=== PATIENT | female | born 1990 | race Two or more races ===

== ENCOUNTER 2024-03-13 19:38 | Emergency (ER) | payer MEDICAID, SELFPAY ==
[2024-03-13 19:38] VITALS: BMI 47.2
--- NOTE | 2024-03-13 21:27 | PC.NURSE ---
NO ANSWER AT ER LOBBY OR OUTSIDE ER TO BE SEEN BY PROVIDER.
== END 2024-03-13 21:28 | disposition left against medical advice (07) ==
PROVIDERS: Emergency Provider Emergency Medicine
DX: Z53.21 Procedure and treatment not carried out due to patient leaving prior to being seen by health care provider (principal)

== ENCOUNTER 2024-04-21 15:57 | Emergency (ER) | payer MEDICAID, SELFPAY ==
[2024-04-21 16:23] VITALS: BP 127/72; PULSE 100; RESP 18; TEMP 37.4; O2SAT 97; BMI 49.8
--- NOTE | 2024-04-21 16:34 | PD.EDURI ---
Upper Respiratory Inf. RME/HPI General Chief Complaint: Flu Like Symptoms Stated Complaint: fever, sore throat, diarrhea, Time Seen by Provider: 04/21/24 16:01 Arrival date/time: 04/21/24 15:57 33-year-old female with no significant medical problems presents emergency department complains of sore throat, fever, diarrhea and bodyaches reports ongoing for last couple of days Limitations: no limitations Related Data Previous Rx's ?Medication ?Instructions ?Recorded azithromycin 500 mg tablet See Rx Instructions PO .COMPLEX #6 02/21/23 tabs ibuprofen 800 mg tablet 800 mg PO TID PRN pain #30 tabs 02/21/23 amoxicillin 875 mg-potassium 1 tab PO BID 7 days #14 tabs 04/21/24 clavulanate 125 mg tablet ibuprofen 800 mg tablet 800 mg PO TID PRN pain #30 tabs 04/21/24 Allergies Allergy/AdvReac Type Severity Reaction Status Date / Time No Known Allergies Allergy Verified 04/21/24 15:59 Review of Systems Review of Systems Systems Reviewed: All systems reviewed, normal except as documented Constitutional Constitutional: Reports system reviewed and no additional complaints, except as documented, Denies fever(s) and Reports headache(s) Eyes Eyes: Reports system reviewed and no additional complaints, except as documented and Denies blurry vision ENT Ears, Nose, Mouth, and Throat: Reports system reviewed and no additional complaints, except as documented, Reports headache(s), Reports nasal congestion, Reports nasal discharge and Reports sore throat Cardiovascular Cardiovascular: Reports system reviewed and no additional complaints, except as documented, Denies chest pain and Denies dyspnea Respiratory Respiratory: Reports system reviewed and no additional complaints, except as documented, Reports chest congestion, Reports cough and Denies dyspnea Gastrointestinal Gastrointestinal: Reports system reviewed and no additional complaints, except as documented, Denies abdominal pain and Reports loose stools Integumentary/Breasts Skin/Breast: Reports system reviewed and no additional complaints, except as documented and Denies rash Neurologic Neurologic: Reports system reviewed and no additional complaints, except as documented, Reports as per HPI and Reports headache(s) Past Medical History Past Medical History NEUROLOGIC: Negative Neurological Disorders or Seizures CARDIAC: Negative Cardiac Disorders or Congestive Heart Failure RESPIRATORY: Negative Chronic Obstructive Pulmonary Disease (COPD) or Asthma GASTROINTESTINAL: Positive Gastrointestinal Disorders and Obesity; Negative Hepatitis, Cirrhosis, Pancreatitis, Celiac Disease, Gall Bladder Disease, Gastrointestinal Bleed, Esophageal Varices, Hassan's Esophagus, Colitis, Ulcerative Colitis, Diverticulitis, Diverticulosis, Ulcer, Colorectal Cancer, Irritable Bowel, Crohn's Disease, Obstructive Bowel, Hiatal Hernia, Hemorrhoids or Gastroesophageal Reflux Disease GENITOURINARY: Negative Genitourinary Disorders, Renal Disease or Prostate Cancer REPRODUCTIVE: Positive Previous Pregnancies; Negative Breast Cancer, Endometriosis, Genital Herpes, Gonorrhea, Pelvic Inflammatory Disease, Syphilis, Testicular Cancer or Uterine Prolapse MUSCULOSKELETAL: Negative Musculoskeletal Disorders or Bone Cancer ENDOCRINE: Negative Endocrine Disorders, Diabetes Mellitus Type 1 or Diabetes Mellitus Type 2 HEMATOLOGIC: Negative Blood Disorders or Sickle Cell Disease PSYCHO/SOCIAL: Positive Anxiety and Depression OTHER HISTORY: Positive Chicken Pox; Negative Hospitalization, Autoimmune Disease, Down Syndrome, Developmental Delay, Shingles, Falls, Blood Transfusions, Blood Transfusion Reaction, Anesthesia Reactions, Organ Transplant, Chemotherapy, Radiation Therapy, Hyperbaric Therapy, MRSA, VRSA, Vancomycin-Resistant Enterococci, Human Immunodeficiency Virus (HIV), Measles, Mumps, Rubella (Angolan Measles), Pertussis, Clostridium Difficile, Cancer, Breast Cancer, Cervical Cancer, Colorectal Cancer, Lung Cancer, Ovarian Cancer, Prostate Cancer or Testicular Cancer Family History FAMILY HISTORY: Positive Family Psychiatric Problems (MATERNAL UNCLE SCHIZOPHRENIA), Family Cardiac Disorders (HTN MOTHER), Family Cancer (AUNT PASSED W. BREAST CANCER) and Family Surgery (AUNT BREAST SURGERY); Negative Family Respiratory Disorders, Family Gastrointestinal Problems or Family Anesthesia Reaction Surgical History SURGICAL: Negative Cardiac Surgery, Endocrine Surgery, Ear Surgery, Abdominal Surgery, Nephrectomy, Joint Replacement, Neurologic Surgery, Mastectomy, Section or Organ Transplant Social History SMOKING STATUS: Never smoker SECOND HAND EXPOSURE: No ED Exam General Limitations: Present no limitations General appearance: Present alert and in no apparent distress Head Head exam: Present atraumatic, normocephalic and normal inspection Eye Eye exam: Present normal appearance, PERRL and EOMI; Absent conjunctival injection ENT ENT exam: Present normal exam, normal oropharynx and mucous membranes moist Neck Neck exam: Present normal inspection, full ROM and trachea midline Chest Chest inspection: Present normal inspection and symmetric chest wall rise Respiratory Respiratory exam: Present normal lung sounds bilaterally Cardiovascular Cardiovascular exam: Present regular rate, normal rhythm and normal heart sounds Abdominal Exam Abdominal exam: Present soft and normal bowel sounds; Absent distention, tenderness, guarding, rebound or rigidity Extremities Exam Extremities exam: Present normal inspection and full ROM Back Exam Back exam: Present normal inspection and full ROM Neurological Exam Neurological exam: Present alert, oriented X3, CN II-XII intact, normal gait and reflexes normal; Absent motor sensory deficit Psychiatric Psychiatric exam: Present normal affect and normal mood Skin Skin exam: Present warm, dry, intact and normal color; Absent rash Course Quality Measures none Vital Signs Vital signs: Vital Signs Temperature 99.3 F 04/21/24 16:23 Pulse Rate 100 04/21/24 16:23 Respiratory Rate 18 04/21/24 16:23 Blood Pressure 127/72 04/21/24 16:23 Pulse Oximetry (%) 97 04/21/24 16:23 Oxygen Delivery Method Room Air 04/21/24 16:23 O2 saturation 97% on room air within normal limits Upper Respiratory Infection MDM Narrative MDM Narrative:: 33-year-old female with no significant medical problems presents emergency department complains of sore throat, fever, diarrhea and bodyaches reports ongoing for last couple of days On exam patient does not appear ill or toxic and in no acute distress On exam patient does have tonsillar erythema no trismus no hoarseness of voice Patient given course of antibiotics and medication for fever and pain Patient discharged home in no distress to follow-up with primary care doctor in the next 24 to 48 hours and for any worsening symptoms to return to the ER immediately Patient data External records reviewed:: [facility] previous records Clinical information provided by:: patient Social determinants that could affect healthcare access:: none Patient has the following chronic illnesses:: None How is presenting disease/condition affected by chronic disease/condition?: no chronic disease Evaluation data The following diagnostics were reviewed and interpreted by me:: other (specify) (N/A) Lab and/or radiology exams considered but not ordered:: Consider not ordered Interpretation Summary: N/A Medications / Prescriptions Medications or Prescriptions considered but not ordered:: Given Medication administrations:: Given Consultations Consultation(s) initiated? (list below): No Diagnosis Upper Respiratory Differential Diagnosis: upper respiratory infection, viral infection and pharyngitis Most likely diagnosis given after review of the tests above:: Pharyngitis, diarrhea Admission Indicated Admission indicated?: not indicated Admission Request Was there a request for admission?: No Disposition Plan Disposition Plan: Discharge Discharge Attestation Discharge Attestation: The patient and all family members were given an opportunity to ask questions and understood the discharge instructions. Discharge instructions specifically effects, indications for sooner follow up or return to the emergency department, and the expected course of current diagnosis. Patient condition: Stable Discharge Plan Plan Patient Disposition: HOME (Self Care) Disposition Comment: Stable Prescriptions/Referrals Prescriptions/Med Rec: New amoxicillin-pot clavulanate 875-125 mg tablet 1 tab PO BID 7 Days Qty: 14 0RF ibuprofen 800 mg tablet 800 mg PO TID PRN (Reason: pain) Qty: 30 0RF No Action ibuprofen 800 mg tablet 800 mg PO TID PRN (Reason: pain) Qty: 30 0RF azithromycin 500 mg tablet See Rx Instructions .ROUTE .COMPLEX Qty: 6 0RF Rx Instructions: take 500 mg today (day 1), then 250 mg for 4 days (days 2-5) Problem List Clinical Impression: Pharyngitis, Otalgia of left ear Patient/Caregiver Discharge Instructions Education Materials: Self-Care for Sore Throats Additional Instructions: Please follow up with your primary care doctor in the next 24-48hrs for any worsening symptoms return here immediately Print Language: Ethiopian Stand Alone Forms: Jacque Award Info., Work/School Release, Patient Portal Info Letter PA/RVDA MASTER CERTIFIED RV TECHNICIAN Supervising Physician PA/RVDA MASTER CERTIFIED RV TECHNICIAN Supervising Physician: Dr madden
== END 2024-04-21 16:42 | disposition home or self-care (01) ==
PROVIDERS: Emergency Provider Emergency Medicine
DX: J02.9 Acute pharyngitis, unspecified (principal); H92.02 Otalgia, left ear
CPT/HCPCS: 99281

== ENCOUNTER 2024-10-03 16:19 | Emergency (ER) | payer MEDICAID, SELFPAY ==
[2024-10-03 17:13] VITALS: BP 134/76; PULSE 85; RESP 20; TEMP 36.4; O2SAT 99; BMI 45.7
--- NOTE | 2024-10-03 17:30 | XR_ITS ---
Examination: NaSal series 4 views FINDINGS: Giovanna Lindsey right and left lateral NaSal series 4 views Date and time: October 03, 2024 1816 hours INDICATIONS: Injury to the nose today, and has nose pain. FINDINGS: Orbital rims appear intact No blood in the maxillary antra Mandible maxilla and nasal bones appear intact IMPRESSION: No displaced nasal bone fracture
--- NOTE | 2024-10-03 17:31 | PD.EDRME ---
Rapid Medical Screening Exam E Arrival date/time: 10/03/24 16:19 This is a 34-year-old female comes into the emergency room with complaints of nasal pain. Patient states that her 2-year-old daughter had butted her in the bridge of her nose. Patient states her nose started to bleed. Patient has a mild abrasion with mild swelling to the bridge of her nose. Patient denies any other injuries. I have greeted and performed a focused initial assessment of this patient. Initial appropriate labs ordered at this time. A comprehensive ED assessment and evaluation of the patient and analysis of all test and completion of medical decision making process will be conducted by additional ED provider. Chief Complaint: General Adult/Misc Complain Time Seen by Provider: 10/03/24 17:19 Vital signs: Vital Signs Temperature 97.5 F 10/03/24 17:13 Pulse Rate 85 10/03/24 17:13 Respiratory Rate 20 10/03/24 17:13 Blood Pressure 134/76 H 10/03/24 17:13 Pulse Oximetry (%) 99 10/03/24 17:13 Oxygen Delivery Method Room Air 10/03/24 17:13
[2024-10-03] MEDS: IBUPROFEN TAB 400 MG TABLET 800 MG PO (17:38)
--- NOTE | 2024-10-03 19:23 | PD.EDEPIST ---
ED Epistaxis RME/HPI General Chief complaint: General Adult/Misc Complain Stated complaint: NOSE INJURY Time Seen by Provider: 10/03/24 17:19 Arrival date/time: 10/03/24 16:19 RME / HPI RME / HPI Narrative: 10/03/24 16:19 This is a 34-year-old female comes into the emergency room with complaints of nasal pain. Patient states that her 2-year-old daughter had butted her in the bridge of her nose. Patient states her nose started to bleed. Patient has a mild abrasion with mild swelling to the bridge of her nose. Patient denies any other injuries. I have greeted and performed a focused initial assessment of this patient. Initial appropriate labs ordered at this time. A comprehensive ED assessment and evaluation of the patient and analysis of all test and completion of medical decision making process will be conducted by additional ED provider. --------- This section includes all my notes and documentations, including HPI, PE, and ED course. Guillermo Moreno MD HPI: 34yo female with no significant past medical history presents to the ED for a nose injury just prior to arrival. Patient states her daughter was jumping on the bed when she headbutted her by accident and has since had nasal pain. Denies any other injuries. No loss of consciousness. No other complaints reported. ROS: All negative except as documented in HPI. Physical Exam: General: Alert and oriented. No acute distress when remaining still. Eyes: Conjunctivae and lids clear. ENT: Nasal tenderness. No deformity. Neck: Supple. Lungs: No respiratory distress. Skin: Warm and dry. Neuro: Alert and oriented X 3. I reviewed all diagnostic test results. My interpretation of the nasal bones x-ray is NAD. At this point, diagnoses include nasal contusion. Recommended supportive care. Based on my best medical judgment, made decision no further evaluation or treatment indicated at this time. Patient understands and agrees to the discharge instructions customized and printed, see below. Discharge Instructions from Dr. Moreno printed for you: 1. Apply ice for 20 minutes every 2-3 hours today and tomorrow. 2. Ibuprofen 800 mg every 6-8 hours today and tomorrow to decrease inflammation then as needed. 3. Tylenol with codeine for severe pain. 4. See a private doctor on 10/08/2024 if not completely better. 5. Seek immediate medical care with worsening or with any concerns. Guillermo Moreno MD Related Data Previous Rx's ?Medication ?Instructions ?Recorded azithromycin 500 mg tablet See Rx Instructions PO .COMPLEX #6 02/21/23 tabs ibuprofen 800 mg tablet 800 mg PO TID PRN pain #30 tabs 02/21/23 ibuprofen 800 mg tablet 800 mg PO TID PRN pain #30 tabs 04/21/24 acetaminophen 300 mg-codeine 30 mg 2 tab PO Q8H PRN pain #10 tabs 10/03/24 tablet ibuprofen 800 mg tablet 800 mg PO Q8H PRN pain #30 tabs 10/03/24 Allergies Allergy/AdvReac Type Severity Reaction Status Date / Time No Known Allergies Allergy Verified 10/03/24 16:21 Review of Systems Review of Systems Systems Reviewed: All systems reviewed, normal except as documented Past Medical History Past Medical History NEUROLOGIC: Negative Neurological Disorders or Seizures CARDIAC: Negative Cardiac Disorders or Congestive Heart Failure RESPIRATORY: Negative Chronic Obstructive Pulmonary Disease (COPD) or Asthma GASTROINTESTINAL: Positive Gastrointestinal Disorders and Obesity; Negative Hepatitis, Cirrhosis, Pancreatitis, Celiac Disease, Gall Bladder Disease, Gastrointestinal Bleed, Esophageal Varices, Hassan's Esophagus, Colitis, Ulcerative Colitis, Diverticulitis, Diverticulosis, Ulcer, Colorectal Cancer, Irritable Bowel, Crohn's Disease, Obstructive Bowel, Hiatal Hernia, Hemorrhoids or Gastroesophageal Reflux Disease GENITOURINARY: Negative Genitourinary Disorders, Renal Disease or Prostate Cancer REPRODUCTIVE: Positive Previous Pregnancies; Negative Breast Cancer, Endometriosis, Genital Herpes, Gonorrhea, Pelvic Inflammatory Disease, Syphilis, Testicular Cancer or Uterine Prolapse MUSCULOSKELETAL: Negative Musculoskeletal Disorders or Bone Cancer ENDOCRINE: Negative Endocrine Disorders, Diabetes Mellitus Type 1 or Diabetes Mellitus Type 2 HEMATOLOGIC: Negative Blood Disorders or Sickle Cell Disease PSYCHO/SOCIAL: Positive Anxiety and Depression OTHER HISTORY: Positive Chicken Pox; Negative Hospitalization, Autoimmune Disease, Down Syndrome, Developmental Delay, Shingles, Falls, Blood Transfusions, Blood Transfusion Reaction, Anesthesia Reactions, Organ Transplant, Chemotherapy, Radiation Therapy, Hyperbaric Therapy, MRSA, VRSA, Vancomycin-Resistant Enterococci, Human Immunodeficiency Virus (HIV), Measles, Mumps, Rubella (Armenian Measles), Pertussis, Clostridium Difficile, Cancer, Breast Cancer, Cervical Cancer, Colorectal Cancer, Lung Cancer, Ovarian Cancer, Prostate Cancer or Testicular Cancer Family History FAMILY HISTORY: Positive Family Psychiatric Problems (MATERNAL UNCLE SCHIZOPHRENIA), Family Cardiac Disorders (HTN MOTHER), Family Cancer (AUNT PASSED W. BREAST CANCER) and Family Surgery (AUNT BREAST SURGERY); Negative Family Respiratory Disorders, Family Gastrointestinal Problems or Family Anesthesia Reaction Surgical History SURGICAL: Negative Cardiac Surgery, Endocrine Surgery, Ear Surgery, Abdominal Surgery, Nephrectomy, Joint Replacement, Neurologic Surgery, Mastectomy, Section or Organ Transplant Social History SMOKING STATUS: Never smoker SECOND HAND EXPOSURE: No ED Exam Narrative Physical exam: As noted in HPI. Course Quality Measures none Orders Category Date Time Status XR nasal bones min 3V Stat Exams 10/03/24 17:30 Completed Ibuprofen Tab [Motrin Tab] Med 10/03/24 17:30 Discontinued 800 mg PO X1 ONE Vital Signs Vital signs: Vital Signs Temperature 97.5 F 10/03/24 17:13 Pulse Rate 85 10/03/24 17:13 Respiratory Rate 20 10/03/24 17:13 Blood Pressure 134/76 H 10/03/24 17:13 Pulse Oximetry (%) 99 10/03/24 17:13 Oxygen Delivery Method Room Air 10/03/24 17:13 Epistaxis MDM Narrative [facility] Narrative:: Scribe Attestation: 10/03/24 - Saadia Hays am scribing for and in the presence of Dr. Moreno. 34yo female with no significant past medical history presents to the ED for a nose injury. Patient states her daughter was jumping on the bed when she headbutted her on accident and has since had nasal pain. Denies any other injuries. No loss of consciousness. No other complaints reported. Patient data External records reviewed:: [facility] previous records (Per chart review, patient has no relevant previous ED visits.) Clinical information provided by:: patient Social determinants that could affect healthcare access:: none Patient has the following chronic illnesses:: none How is presenting disease/condition affected by chronic disease/condition?: no chronic disease Evaluation data The following diagnostics were reviewed and interpreted by me:: radiology exam(s) Lab and/or radiology exams considered but not ordered:: none Interpretation Summary: I reviewed all diagnostic test results. My interpretation of the nasal bones x-ray is NAD. Medications / Prescriptions Medications or Prescriptions considered but not ordered:: none Medication administrations:: Medication Administration History Discontinued Medications Ibuprofen (Ibuprofen Tab 400 Mg Tablet) 800 mg PO X1 ONE Stop: 10/03/24 17:31 Last Admin: 10/03/24 17:38 Dose: 800 mg Documented By: PETRA Ibuprofen Consultations Consultation(s) initiated? (list below): No Diagnosis Epistaxis Differential Diagnosis: nasal bone fracture and other (Nasal contusion) Most likely diagnosis given after review of the tests above:: Nasal contusion Admission Indicated Admission indicated?: not indicated Explain why admission is indicated or not indicated:: With no condition needing emergent intervention, there was no indication for admission. Admission Request Was there a request for admission?: No Disposition Plan Disposition Plan: Discharge Discharge Attestation Discharge Attestation: The patient and all family members were given an opportunity to ask questions and understood the discharge instructions. Discharge instructions specifically effects, indications for sooner follow up or return to the emergency department, and the expected course of current diagnosis. Patient condition: Stable Discharge Plan Plan Patient Disposition: HOME (Self Care) Prescriptions/Referrals Prescriptions/Med Rec: New ibuprofen 800 mg tablet 800 mg PO Q8H PRN (Reason: pain) Qty: 30 0RF acetaminophen-codeine 300-30 mg tablet 2 tab PO Q8H MDD 6 PRN (Reason: pain) Qty: 10 0RF No Action ibuprofen 800 mg tablet 800 mg PO TID PRN (Reason: pain) Qty: 30 0RF azithromycin 500 mg tablet See Rx Instructions .ROUTE .COMPLEX Qty: 6 0RF Rx Instructions: take 500 mg today (day 1), then 250 mg for 4 days (days 2-5) ibuprofen 800 mg tablet 800 mg PO TID PRN (Reason: pain) Qty: 30 0RF Referrals: Alvaro Oh PA-C [Primary Care Provider] - In 1 week Problem List Clinical Impression: Nasal contusion Patient/Caregiver Discharge Instructions Discharge Activity: activity as tolerated Education Materials: ED Nasal Contusion Additional Instructions: Discharge Instructions from Dr. Moreno printed for you: 1. Apply ice for 20 minutes every 2-3 hours today and tomorrow. 2. Ibuprofen 800 mg every 6-8 hours today and tomorrow to decrease inflammation then as needed. 3. Tylenol with codeine for severe pain. 4. See a private doctor on 10/08/2024 if not completely better. 5. Seek immediate medical care with worsening or with any concerns. Print Language: Burkinan Stand Alone Forms: Jacque Award Info., Patient Portal Info Letter
== END 2024-10-03 19:36 | disposition home or self-care (01) ==
PROVIDERS: Emergency Provider Emergency Medicine; PCP Family Medicine
DX: S00.33XA Contusion of nose, initial encounter (principal); W50.0XXA Accidental hit or strike by another person, initial encounter
CPT/HCPCS: 70160; 99283; A9270

== ENCOUNTER 2024-12-13 09:37 | Emergency (ER) | payer MEDICAID, SELFPAY ==
[2024-12-13 09:38] VITALS: BMI 44.0
[2024-12-13 09:45] VITALS: BP 124/82; PULSE 77; RESP 18; TEMP 37; O2SAT 96
--- NOTE | 2024-12-13 09:47 | XR_ITS ---
Examination: Foot, right, 3 views Technique: AP, oblique, lateral views foot, 3 views Date and time of exam: December 14, 1999 2510 0 2:00 AM INDICATIONS: Injury to the foot 2 days ago, foot pain. FINDINGS: Acute fracture base fifth metatarsal without displacement No dislocation IMPRESSION: Acute fracture base fifth metatarsal
--- NOTE | 2024-12-13 09:50 | EDNOTE_ITS ---
<Statement entered by Kaycee Couch MD - 12/13/24 11:50> As co-signing physician, I was present and available for consult prn. I concur with the plan and care as documented by the midlevel provider. Lower Extremity Injury RME/HPI General Chief Complaint: Ankle/Foot Injury Stated Complaint: INJURY RIGHT FOOT 2 DAYS AGO Time Seen by Provider: 12/13/24 09:42 Source: patient Arrival date/time: 12/13/24 09:37 34-year-old female with no known medical history presents to the emergency room with a chief complaint of swelling and tenderness to her right foot after rolling her ankle Friday morning. Mode of arrival: ambulatory Limitations: no limitations Related Data Previous Rx's ?Medication ?Instructions ?Recorded azithromycin 500 mg tablet See Rx Instructions PO .COM PLEX #6 02/21/23 tabs ibuprofen 800 mg tablet 800 mg PO TID PRN pain #30 t abs 02/21/23 ibuprofen 800 mg tablet 800 mg PO TID PRN pain #30 t abs 04/21/24 acetaminophen 300 mg-codeine 30 mg 2 tab PO Q8H PRN pa in #10 tabs 10/03/24 tablet ibuprofen 800 mg tablet 800 mg PO Q8H PRN pain #30 t abs 10/03/24 Allergies Allergy/AdvReac Type Severity Reaction Status Date / Time No Known Allergies Allergy Verified 12/13/24 09:39 Review of Systems Review of Systems Systems Reviewed: All systems reviewed, normal except as documented Constitutional Constitutional: Reports system reviewed and no additional complaints, except as documented, Denies fatigue, Denies fever(s), Denies headache(s) and Denies weakness Eyes Eyes: Reports system reviewed and no additional complaints, except as documented, Denies blurry vision and Denies change in vision ENT Ears, Nose, Mouth, and Throat: Reports system reviewed and no additional complaints, except as documented, Denies otalgia, Denies headache(s), Denies nasal congestion, Denies throat swelling and Denies vertigo Cardiovascular Cardiovascular: Reports system reviewed and no additional complaints, except as documented, Denies chest pain, Denies dyspnea and Denies dyspnea on exertion Respiratory Respiratory: Reports system reviewed and no additional complaints, except as documented, Denies chest congestion, Denies cough, Denies dyspnea, Denies d yspnea on exertion and Denies wheezing Gastrointestinal Gastrointestinal: Reports system reviewed and no additional complaints, except as documented, Denies abdominal pain, Denies cramping, Denies nausea and Denies vomiting Genitourinary Genitourinary: Reports system reviewed and no additional complaints, except as documented Musculoskeletal Musculoskeletal: Reports system reviewed and no additional complaints, except as documented, Reports arthralgias, Denies back pain and Reports joint swelling Integumentary/Breasts Skin/Breast: Reports system reviewed and no additional complaints, except as doc umented and Denies wounds Neurologic Neurologic: Reports system reviewed and no additional complaints, except as documented, Denies confusion, Denies headache(s), Denies lack of coordination, Denies vertigo and Denies weakness Psychiatric Psychiatric: Reports system reviewed and no additional complaints, except as documented, Denies anxiety, Denies confusion, Denies depression, Denies paranoia, Denies suicidal ideation and Denies tactile hallucinations Endocrine Endocrine: Reports system reviewed and no additional complaints, except as documented and Denies fatigue Hematologic/Lymphatic Hematologic/Lymphatic: Reports system reviewed and no additional complaints, except as documented and Denies lymphadenopathy Allergic/Immunologic Allergic/Immunologic: Reports system reviewed and no additional complaints, except as documented, Denies throat swelling, Denies urticaria and Denies wheezing Past Medical History Past Medical History NEUROLOGIC: Negative Neurological Disorders or Seizures CARDIAC: Negative Cardiac Disorders or Congestive Heart Failure RESPIRATORY: Negative Chronic Obstructive Pulmonary Disease (COPD) or Asthma GASTROINTESTINAL: Positive Gastrointestinal Disorders and Obesity; Negative Hepatitis, Cirrhosis, Pancreatitis, Celiac Disease, Gall Bladder Disease, Gastrointestinal Bleed, Esophageal Varices, Hassan's Esophagus, Colitis, Ulcerative Colitis, Diverticulitis, Diverticulosis, Ulcer, Colorectal Cancer, Irritable Bowel, Crohn's Disease, Obstructive Bowel, Hiatal Hernia, Hemorrhoids or Gastroesophageal Reflux Disease GENITOURINARY: Negative Genitourinary Disorders, Renal Disease or Prostate Cancer REPRODUCTIVE: Positive Previous Pregnancies; Negative Breast Cancer, Endometriosis, Genital Herpes, Gonorrhea, Pelvic Inflammatory Disease, Syphilis, Testicular Cancer or Uterine Prolapse MUSCULOSKELETAL: Negative Musculoskeletal Disorders or Bone Cancer ENDOCRINE: Negative Endocrine Disorders, Diabetes Mellitus Type 1 or Diabetes Mellitus Type 2 HEMATOLOGIC: Negative Blood Disorders or Sickle Cell Disease PSYCHO/SOCIAL: Positive Anxiety and Depression OTHER HISTORY: Positive Chicken Pox; Negative Hospitalization, Autoimmune Disease, Down Syndrome, Developmental Delay, Shingles, Falls, Blood Transfusions, Blood Transfusion Reaction, Anesthesia Reactions, Organ Transplant, Chemotherapy, Radiation Therapy, Hyperbaric Therapy, MRSA, VRSA, Vancomycin-Resistant Enterococci, Human Immunodeficiency Virus (HIV), Measles, Mumps, Rubella (Pashto Measles), Pertussis, Clostridium Difficile, Cancer, Breast Cancer, Cervical Cancer, Colorectal Cancer, Lung Cancer, Ovarian Cancer, Prostate Cancer or Testicular Cancer Family History FAMILY HISTORY: Positive Family Psychiatric Problems (MATERNAL UNCLE SCHIZOPHRENIA), Family Cardiac Disorders (HTN MOTHER), Family Cancer (AUNT PASSED W. BREAST CANCER) and Family Surgery (AUNT BREAST SURGERY); Negative Family Respiratory Disorders, Family Gastrointestinal Problems or Family Anesthesia Reaction Surgical History SURGICAL: Negative Cardiac Surgery, Endocrine Surgery, Ear Surgery, Abdominal Surgery, Nephrectomy, Joint Replacement, Neurologic Surgery, Mastectomy, Section or Organ Transplant Social History SMOKING STATUS: Never smoker SECOND HAND EXPOSURE: No ED Exam General Limitations: Present no limitations General appearance: Present alert and in no apparent distress Head Head exam: Present atraumatic Eye Eye exam: Present normal appearance, PERRL and EOMI ENT ENT exam: Present normal exam, normal oropharynx and mucous membranes moist Neck Neck exam: Present normal inspection, full ROM and trachea midline Chest Chest inspection: Present normal inspection and symmetric chest wall rise Respiratory Respiratory exam: Present normal lung sounds bilaterally Cardiovascular Cardiovascular exam: Present regular rate, normal rhythm and normal heart sounds Abdominal Exam Abdominal exam: Present soft and normal bowel sounds Extremities Exam Extremities exam: Present normal inspection and full ROM Expanded Lower Extremity Exam Hip/Pelvis exam: Present normal inspection Upper leg exam: Present normal inspection Knee exam: Present normal inspection Lower leg exam: Present normal inspection Ankle exam: Present normal inspection Foot/toe exam: Present tenderness and swelling Gait: observed and normal Back Exam Back exam: Present normal inspection and full ROM Neurological Exam Neurological exam: Present alert, oriented X3 and CN II-XII intact Psychiatric Psychiatric exam: Present normal affect and normal mood Skin Skin exam: Present warm, dry, intact and normal color Course Quality Measures none Orders Category Date Time Status Crutches .NOW Care 12/13/24 10:58 Active Splint / Immobilizer STAT Care 12/13/24 10:55 Active XR foot comp RT min 3V Stat Exams 12/13/24 09:47 Completed Vital Signs Vital signs: Vital Signs Temperature 98.6 F 12/13/24 09:45 Pulse Rate 77 12/13/24 09:45 Respiratory Rate 18 12/13/24 09:45 Blood Pressure 124/82 12/13/24 09:45 Pulse Oximetry (%) 96 12/13/24 09:45 Oxygen Delivery Method Room Air 12/13/24 09:45 O2 saturation 96% within normal limits Extremity Injury, Lower MDM Narrative MDM Narrative:: 34-year-old female with no known medical history presents to the emergency room with a chief complaint of swelling and tenderness to her right foot after rolling her ankle Friday morning. Patient is hemodynamically stable and in no apparent distress Physical examination shows swelling and tenderness to the dorsal part of the patient's foot with palpation. There is no tenderness and pain or swelling up to the ankle and the patient has full range of motion and sensation X-ray of the right foot was completed and shows an acute fracture of the fifth metatarsal. The patient was put in a posterior short leg splint and given crutches. The patient was educated on RICE techniques as well as educated to use her crutches as this is nonweightbearing. Patient was educated to follow-up with her primary care provider as a referral to an community relations specialist will be needed for further management. Patient was discharged and educated to follow-up with primary care provider in the next 24 to 48 hours and return to the emergency room for any evidence of worsening signs or symptoms Patient data External records reviewed:: [facility] previous records Clinical information provided by:: patient Social determinants that could affect healthcare access:: none Patient has the following chronic illnesses:: No chronic illness How is presenting disease/condition affected by chronic disease/condition?: no chronic disease Evaluation data The following diagnostics were reviewed and interpreted by me:: lab results and radiology exam(s) Lab and/or radiology exams considered but not ordered:: Labs and radiology exams considered and ordered Interpretation Summary: X-ray righ foot-FINDINGS: Acute fracture base fifth metatarsal without displacement No dislocation IMPRESSION: Acute fracture base fifth metatarsal Medications / Prescriptions Medications or Prescriptions considered but not ordered:: No medication given Medication administrations:: No medication given Consultations Consultation(s) initiated? (list below): No Diagnosis Extremity Injury, Lower Differential Diagnosis: ankle sprain and strain, ankle fracture and other (Foot sprain/foot fracture/acute fracture of the fifth metatarsal) Most likely diagnosis given after review of the tests above:: Acute fracture of the fifth metatarsal Admission Indicated Admission indicated?: not indicated Admission Request Was there a request for admission?: No Disposition Plan Disposition Plan: Discharge Discharge Attestation Discharge Attestation: The patient and all family members were given an opportunity to ask questions and understood the discharge instructions. Discharge instructions specifically effects, indications for sooner follow up or return to the emergency department, and the expected course of current diagnosis. Patient condition: Stable Discharge Plan Plan Patient Disposition: HOME (Self Care) Discharge Disposition comment: Stable Prescriptions/Referrals Prescriptions/Med Rec: No Action ibuprofen 800 mg tablet 800 mg PO TID PRN (Reason: pain) Qty: 30 0RF azithromycin 500 mg tablet See Rx Instructions .ROUTE .COMPLEX Qty: 6 0RF Rx Instructions: take 500 mg today (day 1), then 250 mg for 4 days (days 2-5) ibuprofen 800 mg tablet 800 mg PO TID PRN (Reason: pain) Qty: 30 0RF ibuprofen 800 mg tablet 800 mg PO Q8H PRN (Reason: pain) Qty: 30 0RF acetaminophen-codeine 300-30 mg tablet 2 tab PO Q8H MDD 6 PRN (Reason: pain) Qty: 10 0RF Referrals: No Primary/Family,Physician [Referring Provider] - In 1 week Problem List Clinical Impression: Fracture of base of fifth metatarsal bone Patient/Caregiver Discharge Instructions Education Materials: Fifth Metatarsal Fx, ED Fracture, Foot Additional Instructions: Please follow-up with your primary care provider in the next 24 to 48 hours Your x-rays show an acute fracture of the fifth metatarsal. A splint was placed please do not remove the splint until you are seen or cleared by your community relations specialist. This is a nonweightbearing fracture please use your crutches. You will need a referral from your primary care provider to an community relations specialist for further management of this fracture For any evidence of worsening signs or symptoms return to emergency room immediately Print Language: Pakistani Stand Alone Forms: Jacque Award Info., Work/School Release, Patient Portal Info Letter PA/EVY Supervising Physician PA/EVY Supervising Physician: Dr. Small
== END 2024-12-13 12:58 | disposition home or self-care (01) ==
PROVIDERS: Emergency Provider Emergency Medicine; PCP Family Medicine
DX: S92.354A Nondisplaced fracture of fifth metatarsal bone, right foot, initial encounter for closed fracture (principal); X50.1XXA Overexertion from prolonged static or awkward postures, initial encounter
CPT/HCPCS: 29515; 73630; 99284